=== PATIENT | female | born 1980 | race Caucasian/White ===

== ENCOUNTER 2016-04-20 15:04 | Observation (INO) | payer MEDICAID ==
[2016-04-20] MEDS ORDERED: 0.9 % SODIUM CHLORIDE 1,000 ML BAG IV ONE (16:23)
[2016-04-20] MEDS ORDERED: ONDANSETRON HCL IV 4 MG/2 ML VIAL IVP ONE (16:42)
[2016-04-20 16:47] LABS: BASO % 0.1 % (0-6); EOS % 0.1 % (0-6); GRAN % 78.8 % (47-80); HEMATOCRIT 39.8 % (35.0-47.0); HEMOGLOBIN 12.7 gm/dl (11.6-16.0); LYMPH % 12.4 % (16-45); MEAN CELL VOLUME 83.3 fl (81-97); MEAN CORPUSCULAR HEMOGLOBIN 26.6 pg (27-33); MEAN CORPUSCULAR HGB CONC 31.9 g/dl (32-36); MEAN PLATELET VOLUME 9.9 fl (7.4-10.4); MONO % 8.6 % (0-9); PLATELET COUNT 384 K/uL (130-400); RED BLOOD COUNT 4.78 M/uL (3.80-5.40); RED CELL DISTRIBUTION WIDTH 14.4 % (11.5-14.5); WHITE BLOOD COUNT W/O DIFF 14.5 K/uL (4.2-12.2)
[2016-04-20 17:07] LABS: ALBUMIN 4.1 gm/dL (3.5-5.0); ALKALINE PHOSPHATASE 96 U/L (38-126); ALT/SGPT 31 U/L (9-52); AMYLASE 42 U/L (30-110); ANION GAP 16.4 (7-16); AST/SGOT 32 U/L (14-36); BILIRUBIN,TOTAL 0.85 mg/dL (0.2-1.3); BLOOD UREA NITROGEN 12 mg/dL (7-17); CARBON DIOXIDE 26.6 mmol/L (22-30); CREATININE 0.9 mg/dL (0.52-1.04); EST GLOMERULAR FILTRATION RATE > 60 ml/min; GLUCOSE,RANDOM 165 mg/dL (70-110); LIPASE 89 U/L (23-300); TOTAL PROTEIN 8.4 gm/dL (6.3-8.2)
--- NOTE | 2016-04-20 18:56 | Emergency Department Record ---
History of Present Illness - General Chief complaint: Nausea, Vomiting, Diarrhea Stated complaint: BODY ACHE/NAUSEATED/DIARRHEA Time Seen by Provider: 04/20/16 16:17 Source: Patient Mode of Arrival: Ambulatory Limitations: No limitations - History of Present Illness Initial comments: pt has been sick all week with vomiting, diarrhea, body aches and abdominal pain. MD complaint: Abdominal pain, Diarrhea, Nausea, Vomiting Onset/Timin -: Days(s) Description of Diarrhea: Water Severity: Moderate Severity scale (1-10): 10 Quality: Aching Consistency: Intermittent Associated Symptoms: Malaise, Nausea/vomiting - Related Data Home Medications Medication Instructions Recorded Confirmed Last Taken Albuterol Sulfate [Ventolin Hfa] 1 - 2 puff IH .EVERY 4-6 HOURS PRN 04/20/16 1 Day Ago Lisinopril 20 mg PO DAILY 04/20/16 04/20/16 1 Day Ago Loratadine 10 mg PO DAILY 04/20/16 04/20/16 1 Day Ago Metformin HCl [Metformin HCl ER] 1,000 mg PO BID 04/20/16 04/20/16 1 Day Ago Allergies Allergy/AdvReac Type Severity Reaction Status Date / Time No Known Drug Allergies Allergy Verified 04/20/16 15:42 Travel Screening - Travel/Exposure Within Last 30 Days Have you traveled within the last 30 days?: No - Travel/Exposure Within Last Year Have you traveled outside the [place] in the last year?: No - Additonal Travel Details Have you been exposed to anyone with a communicable illness?: No - Travel Symptoms Symptom Screening: None Review of Systems Reviewed: No additional complaints except as noted below Constitutional: Reports: As per HPI. Denies: Chills, Fever, Malaise, Night sweats, Weakness, Weight change Eyes: Reports: As per HPI. Denies: Eye discharge, Eye pain, Photophobia, Vision change ENT: Reports: As per HPI. Denies: Congestion, Dental pain, Ear pain, Epistaxis , Hearing loss, Throat pain Respiratory: Reports: As per HPI. Denies: Cough, Dyspnea, Hemoptysis, Stridor, Wheezes Cardiovascular: Reports: As per HPI. Denies: Arrhythmia, Chest pain, Dyspnea on exertion, Edema, Murmurs, Orthopnea, Palpitations, Paroxysmal nocturnal dyspnea, Rheumatic Fever, Syncope Endocrine: Reports: As per HPI. Denies: Fatigue, Heat or cold intolerance, Polydipsia, Polyuria Gastrointestinal: Reports: As per HPI. Denies: Abdominal pain, Constipation, Diarrhea, Hematemesis, Hematochezia, Melena, Nausea, Vomiting Genitourinary: Reports: As per HPI. Denies: Abnormal menses, Discharge, Dyspareunia, Dysuria, Frequency, Hematuria, Incontinence, Retention, Urgency Musculoskeletal: Reports: As per HPI. Denies: Arthralgia, Back pain, Gout, Joint swelling, Myalgia, Neck pain Skin: Reports: As per HPI. Denies: Bruising, Change in color, Change in hair/ nails, Lesions, Pruritus, Rash Neurological: Reports: As per HPI. Denies: Abnormal gait, Confusion, Headache, Numbness, Paresthesias, Seizure, Tingling, Tremors, Vertigo, Weakness Psychiatric: Reports: As per HPI. Denies: Anxiety, Auditory hallucinations, Depression, Homicidal thoughts, Suicidal thoughts, Visual hallucinations Hematological/Lymphatic: Reports: As per HPI. Denies: Anemia, Blood Clots, Easy bleeding, Easy bruising, Swollen glands Past Medical History - SOCIAL HISTORY Smoking Status: Never smoker Alcohol Use: Occassional Drug Use: None - RESPIRATORY Hx Asthma: Yes (seasonal) - CARDIOVASCULAR Hx Cardio Disorders: No - NEURO Hx Neuro Disorders: No - GI Hx GI Disorders: No - Hx Genitourinary Disorders: No - ENDOCRINE Hx Diabetes: Yes Hx Thyroid Disease: No - MUSCULOSKELETAL Hx Musculoskeletal Disorders: No - PSYCH Hx Psych Problems: No - HEMATOLOGY/ONCOLOGY Hx Anemia: No Hx Blood Disorders: No Hx Bruising: No Family Medical History Any Significant Family History?: Yes Family Hx Comment (NOT TO BE USED IN PLACE OF ITEMS BELOW): none noted Physical Exam - General General Appearance: Alert, Oriented x3, Cooperative, Mild distress, Other ( morbidly obese) - Head Head exam: Normal inspection - Eye Eye exam: Normal appearance, PERRL, EOMI Pupils: Normal accommodation - ENT ENT exam: Normal exam, Mucous membranes dry, Normal external ear exam, Normal orophraynx Ear exam: Normal external inspection. negative: External canal tenderness Nasal Exam: Normal inspection. negative: Discharge, Sinus tenderness Mouth exam: Normal external inspection, Tongue normal Teeth exam: Normal inspection. negative: Dental caries Throat exam: Normal inspection. negative: Tonsillar erythema, Tonsillar exudate - Neck Neck exam: Normal inspection, Full ROM. negative: Tenderness - Respiratory Respiratory exam: Normal lung sounds bilaterally. negative: Respiratory distress - Cardiovascular Cardiovascular Exam: Normal rhythm, Normal heart sounds, Tachycardia - GI/Abdominal GI/Abdominal exam: Soft, Normal bowel sounds, Tenderness (ruq) - Rectal Rectal exam: Deferred - exam: Deferred - Extremities Extremities exam: Normal inspection, Full ROM, Normal capillary refill. negative: Tenderness - Back Back exam: Reports: Normal inspection, Full ROM. Denies: Muscle spasm, Rash noted, Tenderness - Neurological Neurological exam: Alert, CN II-XII intact, Normal gait, Oriented X3 - Psychiatric Psychiatric exam: Normal affect, Normal mood - Skin Skin exam: Dry, Intact, Normal color, Warm Course Vital Signs 04/20/16 04/20/16 15:45 18:18 Temperature 98.6 F Pulse Rate [ 117 H 116 H Pulse Ox Probe] Respiratory 20 18 Rate Blood Pressure 107/91 116/71 [Left Arm] Pulse Ox 96 94 L - Reevaluation(s) Reevaluation #1: 04/20/16 19:01 pt feels slightly better Medical Decision Making - Lab Data Result diagrams: 04/20/16 16:42 04/20/16 16:42 Lab Results 04/20/16 04/20/16 Range/Units 16:42 16:42 WBC 14.5 H (4.2-12.2) K/uL RBC 4.78 (3.80-5.40) M/uL Hgb 12.7 (11.6-16.0) gm/dl Hct 39.8 (35.0-47.0) % MCV 83.3 (81-97) fl MCH 26.6 L (27-33) pg MCHC 31.9 L (32-36) g/dl RDW 14.4 (11.5-14.5) % Plt Count 384 (130-400) K/uL MPV 9.9 (7.4-10.4) fl Gran % 78.8 (47-80) % Lymphocytes % 12.4 L (16-45) % Monocytes % 8.6 (0-9) % Eosinophils % 0.1 (0-6) % Basophils % 0.1 (0-6) % Sodium 136 (136-145) mmol/L Potassium 3.4 L (3.5-5.1) mmol/L Chloride 93 L (98-107) mmol/L Carbon Dioxide 26.6 (22-30) mmol/L Anion Gap 16.4 H (7-16) BUN 12 (7-17) mg/dL Creatinine 0.9 (0.52-1.04) mg/dL Estimated GFR > 60 ml/min Random Glucose 165 H (70-110) mg/dL Calcium 8.5 (8.5-10.1) mg/dL Total Bilirubin 0.85 (0.2-1.3) mg/dL AST 32 (14-36) U/L ALT 31 (9-52) U/L Alkaline Phosphatase 96 (38-126) U/L Total Protein 8.4 H (6.3-8.2) gm/dL Albumin 4.1 (3.5-5.0) gm/dL Globulin 4.3 (1.4-4.8) gm/dL Albumin/Globulin Ratio 1.0 L (1.1-1.8) Amylase 42 (30-110) U/L Lipase 89 (23-300) U/L Disposition Disposition: Admit Clinical Impression: Pyelonephritis Disposition: Still a Patient at [facility] Decision to Admit: Admit from ER Decision to Admit Date: 04/20/16 Decision to Admit Time: 19:06 Forms: Patient Portal Access
[2016-04-20] MEDS ORDERED: PROMETHAZINE HCL 25 MG/ML VIAL IVP PRN (19:47)
[2016-04-20] MEDS ORDERED: ACETAMINOPHEN 500 MG TABLET PO PRN (19:47)
[2016-04-20] MEDS: 0.9 % SODIUM CHLORIDE 1000ML 1,000 ML IV PRN (20:09)
[2016-04-20] MEDS: CIPROFLOXACIN LACTATE/D5W 400 MG in DEXTROSE 1 BAG IVPB SCH (23:35)
[2016-04-20 23:38] LABS: URINE BILIRUBIN SMALL (NEGATIVE); URINE BLOOD LARGE (NEGATIVE); URINE GLUCOSE (UA) NEGATIVE (NEGATIVE); URINE KETONE NEGATIVE (NEGATIVE); URINE LEUKOCYTE ESTERASE MODERATE (NEGATIVE); URINE NITRITE NEGATIVE (NEGATIVE); URINE UROBILINOGEN 0.2 E.U./dL (0.20 - 1.00)
[2016-04-20 23:53] LABS: URINE APPEARANCE CLOUDY; URINE PROTEIN 300 mg/dL (NEGATIVE)
[2016-04-20 23:54] LABS: URINE COLOR AMBER
[2016-04-20 23:55] LABS: URINE AMORPHOUS SEDIMENT 4+; URINE BACTERIA 4+; URINE EPITHELIAL CELLS 16 - 20 (FEW); URINE MUCUS HEAVY
--- NOTE | 2016-04-21 06:45 | History & Physical ---
History of Present Illness - Date of Service Date of Service for History & Physical: 04/21/16 - History of Present Illness Admitting Diagnosis: pyelonepritis, dehydration, vomiting History of Present Illness: 35 yo female admitted for B/L pyelonephritis. PMHx consists of high blood pressure, type 2 DM, obesity, seasonal allergies. [facility] states she began not feeling well about one week ago. She followed up with her PCP on April 15. She states she felt well on Friday, so she didn't bring up her body aches, nausea or fatigue. On Friday morning, patient woke up with those symptoms back again. In addition, she reports abdominal cramping, decreased appetite, fever, chills and vomiting. Aggravated by nothing. Alleviated with tylenol and IV fluids, anti emetic and Cipro. While in the ED, T 98.6, HR 116, RR 18, BP 116/71, and O2 94 % on RA. WBC 14.5 , o/w CBC normal. Sodium 136, potassium 3.4, chloride 93, AG 16.4, BUN 12, Cr. 0.9, glucose 165, normal hepatical profile, amylase/lipase. UA: moderate leuks, large blood, 4+ bacteria. CT of abdomen: B/L perinephritic fat stranding consistent with pyelonephritis (L>R), fatty liver. Patient was started on IV Cipro 400 mg q 12 hours and IVF's. Patient was admitted for further medical management. 04/21/16: Patient sitting up in bed comfortably. She states she feels much better. She denies any n/v, dysuria, hematuria, change in urination, diarrhea, abdominal pain, fever chills, headache, cough, sob, cp, fatigue or body aches. she's not requiring any medication for pain. Tolerating PO intake. States she feels warm, though typically requires a fan near by even in the winter. Denies any sick contacts or recent travel. no changes to her medications. reports h/ o UTI many years ago. PCP: Eloisa Church M.D. Travel Screening - Travel/Exposure Within Last 30 Days Have you traveled within the last 30 days?: No - Travel/Exposure Within Last Year Have you traveled outside the [place] in the last year?: No - Additonal Travel Details Have you been exposed to anyone with a communicable illness?: No - Travel Symptoms Symptom Screening: None Review of Systems Constitutional: Reports: As per HPI. Denies: Chills, Fever, Malaise, Night sweats, Weakness, Weight change Eyes: Reports: As per HPI. Denies: Eye discharge, Eye pain, Photophobia, Vision change ENT: Reports: As per HPI. Denies: Congestion, Dental pain, Ear pain, Epistaxis , Hearing loss, Throat pain Respiratory: Reports: As per HPI. Denies: Cough, Dyspnea, Hemoptysis, Stridor, Wheezes Cardiovascular: Reports: As per HPI. Denies: Arrhythmia, Chest pain, Dyspnea on exertion, Edema, Murmurs, Orthopnea, Palpitations, Paroxysmal nocturnal dyspnea, Rheumatic Fever, Syncope Endocrine: Reports: As per HPI. Denies: Fatigue, Heat or cold intolerance, Polydipsia, Polyuria Gastrointestinal: Reports: As per HPI. Denies: Abdominal pain, Constipation, Diarrhea, Hematemesis, Hematochezia, Melena, Nausea, Vomiting Genitourinary: Reports: As per HPI. Denies: Abnormal menses, Discharge, Dyspareunia, Dysuria, Frequency, Hematuria, Incontinence, Retention, Urgency Musculoskeletal: Reports: As per HPI. Denies: Arthralgia, Back pain, Gout, Joint swelling, Myalgia, Neck pain Skin: Reports: As per HPI. Denies: Bruising, Change in color, Change in hair/ nails, Lesions, Pruritus, Rash Neurological: Reports: As per HPI. Denies: Abnormal gait, Confusion, Headache, Numbness, Paresthesias, Seizure, Tingling, Tremors, Vertigo, Weakness Psychiatric: Reports: As per HPI. Denies: Anxiety, Auditory hallucinations, Depression, Homicidal thoughts, Suicidal thoughts, Visual hallucinations Hematological/Lymphatic: Reports: As per HPI. Denies: Anemia, Blood Clots, Easy bleeding, Easy bruising, Swollen glands Past Medical History - SOCIAL HISTORY Smoking Status: Never smoker Alcohol Use: Rare Alcohol Use Comment: one drink monthly Drug Use: None - RESPIRATORY Hx Respiratory Disorders: Yes Hx Asthma: Yes (seasonal) Hx of CPAP: Yes - CARDIOVASCULAR Hx Cardio Disorders: Yes Hx Hypertension: Yes - NEURO Hx Neuro Disorders: No - GI Hx GI Disorders: No - Hx Genitourinary Disorders: No - ENDOCRINE Hx Endocrine Disorders: Yes Hx Diabetes: Yes Hx Thyroid Disease: No - MUSCULOSKELETAL Hx Musculoskeletal Disorders: No - PSYCH Hx Psych Problems: No - HEMATOLOGY/ONCOLOGY Hx Hematology/Oncology Disorders: No Family Medical History Any Significant Family History?: Yes Hx Diabetes: Father, Mother Hx Heart Disease: Brother/Sister H&P Meds/Allergies - Allergies Allergies: Allergies Allergy/AdvReac Type Severity Reaction Status Date / Time No Known Drug Allergies Allergy Verified 04/20/16 15:42 - Home Medications Home Medications Medication Instructions Recorded Confirmed Last Taken Albuterol Sulfate [Ventolin Hfa] 1 - 2 puff IH .EVERY 4-6 HOURS PRN 04/20/16 1 Day Ago Lisinopril 20 mg PO DAILY 04/20/16 04/20/16 1 Day Ago Loratadine 10 mg PO DAILY 04/20/16 04/20/16 1 Day Ago Metformin HCl [Metformin HCl ER] 1,000 mg PO BID 04/20/16 04/20/16 1 Day Ago - Active Medications Active Medications: Current Medications Acetaminophen (Tylenol 500mg Tab) 1,000 mg PO Q6H PRN PRN Reason: PAIN/TEMP Ciprofloxacin Lactate 400 mg/ (Glucose) 200 mls @ 200 mls/hr IVPB Q12H FELISHA Stop: 04/25/16 19:48 Last Admin: 04/20/16 23:35 Dose: 200 mls/hr Sodium Chloride () 1,000 mls @ 125 mls/hr IV .Q8H PRN PRN Reason: LARGE VOLUME IV Last Admin: 04/20/16 20:09 Dose: 125 mls/hr Promethazine HCl (Phenergan) 12.5 mg IVP Q6H PRN PRN Reason: NAUSEA/VOMITING Physical Exam - Vital Signs Vital Signs: Vital Signs - Last 24 Hrs Temp Pulse Resp BP Pulse Ox 04/20/16 19:55 20 04/20/16 19:50 97.8 F 108 H 20 124/62 90 L - General General Appearance: Alert, Oriented x3, Cooperative, No acute distress, Other ( morbidly obese) Limitations: No limitations - Head Head exam: Normal inspection - Eye Eye exam: Normal appearance, PERRL, EOMI Pupils: Normal accommodation - ENT ENT exam: Normal exam, Mucous membranes dry, Normal external ear exam, Normal orophraynx Ear exam: Normal external inspection. negative: External canal tenderness Nasal Exam: Normal inspection. negative: Discharge, Sinus tenderness Mouth exam: Normal external inspection, Tongue normal Teeth exam: Normal inspection. negative: Dental caries Throat exam: Normal inspection. negative: Tonsillar erythema, Tonsillar exudate - Neck Neck exam: Normal inspection, Full ROM. negative: Tenderness - Respiratory Respiratory exam: Normal lung sounds bilaterally. negative: Respiratory distress - Cardiovascular Cardiovascular Exam: Regular rate, Normal rhythm, Normal heart sounds - GI/Abdominal GI/Abdominal exam: Soft, Normal bowel sounds. negative: Tenderness - Rectal Rectal exam: Deferred - exam: Deferred - Extremities Extremities exam: Normal inspection, Full ROM, Normal capillary refill. negative: Tenderness - Back Back exam: Reports: Normal inspection, Full ROM. Denies: Muscle spasm, Rash noted, Tenderness - Neurological Neurological exam: Alert, CN II-XII intact, Normal gait, Oriented X3 - Psychiatric Psychiatric exam: Normal affect, Normal mood - Skin Skin exam: Diaphoretic (back), Intact, Normal color, Warm. negative: Erythema, Petechiae, Rash Results - Labs Result Diagrams: 04/21/16 06:49 04/21/16 06:49 Labs Last 24 Hours: Laboratory Results - last 24 hr 04/20/16 23:20 Urine Color [place] Urine Appearance Cloudy Urine pH 5.5 Ur Specific [place] >= 1.030 Urine Protein 300 mg/dl H Urine Glucose (UA) Negative Urine Ketones Negative Urine Blood Large H Urine Nitrite Negative Urine Bilirubin Small H Urine Urobilinogen 0.2 Ur Leukocyte Esterase Moderate H Urine RBC Too numerous to cnt Urine WBC Too numerous to cnt Ur Epithelial Cells 16 - 20 Amorphous Sediment 4+ Urine Bacteria 4+ Urine Mucus Heavy VTE H&P Assessment - Risk for VTE Risk for VTE: Yes Risk Level: Moderate Risk Assessment Date: 04/21/16 Risk Assessment Time: 11:00 VTE Orders Placed or Will Be Placed: Yes Plan - Detailed Diagnosis and Plan (1) Pyelonephritis Current Visit: Yes Status: Acute Base Code: N12 - TUBULO-INTERSTITIAL NEPHRITIS, NOT SPCF ACUTE OR CHRONIC Comment: 04/21/16: 35 yo female with UA positive for moderate leuks, blood and 4+ bacteria. CT of abdomen demonstrated B/L pyelonephritis. WBC normalized. Afebrile. Continue IV Ciprofloxacin 400 mg Q12 hours. await culture results. Tylenol as directed as needed for fever. Anti emetic prn for nausea. VS Q4 hours. Continue all home medications. I anticipate D/C home 04/22/16. (2) DVT prophylaxis Current Visit: Yes Status: Acute Base Code: [id number] - Comment: 04/21/16: moderate risk noting weight and decreased mobility. lovenox 40 mg sq daily for dvt prophylaxis. (3) Full code status Current Visit: Yes Status: Acute Base Code: Z78.9 - OTHER SPECIFIED HEALTH STATUS Comment: 04/21/16: full code
[2016-04-21 06:46] LABS: BASO % 0.3 % (0-6); EOS % 1.3 % (0-6); HEMATOCRIT 35.7 % (35.0-47.0); HEMOGLOBIN 11.2 gm/dl (11.6-16.0); LYMPH % 17.4 % (16-45); MEAN CORPUSCULAR HGB CONC 31.4 g/dl (32-36); PLATELET COUNT 307 K/uL (130-400); RED CELL DISTRIBUTION WIDTH 14.6 % (11.5-14.5); WHITE BLOOD COUNT W/O DIFF 9.3 K/uL (4.2-12.2)
[2016-04-21] MEDS: 0.9 % SODIUM CHLORIDE 1000ML 1,000 ML IV PRN ×2 (06:50→18:26)
[2016-04-21 06:51] LABS: MEAN CORPUSCULAR HEMOGLOBIN 26.6 pg (27-33)
[2016-04-21 07:02] LABS: BLOOD UREA NITROGEN 13 mg/dL (7-17); CREATININE 0.8 mg/dL (0.52-1.04); EST GLOMERULAR FILTRATION RATE > 60 ml/min; GLUCOSE,RANDOM 164 mg/dL (70-110)
[2016-04-21] MEDS ORDERED: ALBUTEROL HFA 8 GM INHALER INH PRN (08:46)
[2016-04-21] MEDS ORDERED: POTASSIUM CHLORIDE 20 MEQ TABLET PO ONE (10:35)
[2016-04-21] MEDS: ENOXAPARIN 40 MG/0.4 ML SYR SQ SCH (10:42)
[2016-04-21] MEDS: CIPROFLOXACIN LACTATE/D5W 400 MG in DEXTROSE 1 BAG IVPB SCH ×3 (10:43→23:47)
[2016-04-21] MEDS ORDERED: ONDANSETRON HCL IV 4 MG/2 ML VIAL IVP PRN (18:21)
[2016-04-21] MEDS: LORATADINE 10 MG TABLET PO SCH (21:12)
[2016-04-21] MEDS: METFORMIN 500 MG PO SCH (21:13)
[2016-04-21] MEDS: LISINOPRIL 20 MG TABLET PO SCH (21:13)
[2016-04-22] MEDS: 0.9 % SODIUM CHLORIDE 1000ML 1,000 ML IV PRN (04:48)
[2016-04-22 06:23] LABS: BASO % 0.2 % (0-6); EOS % 1.6 % (0-6); GRAN % 68.6 % (47-80); HEMATOCRIT 37.5 % (35.0-47.0); HEMOGLOBIN 11.7 gm/dl (11.6-16.0); LYMPH % 18.9 % (16-45); MEAN CELL VOLUME 85.6 fl (81-97); MEAN CORPUSCULAR HEMOGLOBIN 26.7 pg (27-33); MEAN CORPUSCULAR HGB CONC 31.2 g/dl (32-36); MEAN PLATELET VOLUME 10.1 fl (7.4-10.4); MONO % 10.7 % (0-9); PLATELET COUNT 315 K/uL (130-400); RED BLOOD COUNT 4.38 M/uL (3.80-5.40); RED CELL DISTRIBUTION WIDTH 14.5 % (11.5-14.5); WHITE BLOOD COUNT W/O DIFF 8.8 K/uL (4.2-12.2)
[2016-04-22 06:38] LABS: ANION GAP 13.8 (7-16); BLOOD UREA NITROGEN 8 mg/dL (7-17); CARBON DIOXIDE 27.2 mmol/L (22-30); CREATININE 0.6 mg/dL (0.52-1.04); EST GLOMERULAR FILTRATION RATE > 60 ml/min; GLUCOSE,RANDOM 181 mg/dL (70-110)
--- NOTE | 2016-04-22 07:26 | CT SCAN REPORT ---
EXAM: CT SCAN OF THE ABDOMEN AND PELVIS WITHOUT CONTRAST HISTORY: EPIGASTRIC PAIN FOR THE PAST FOUR DAYS WITH VOMITING. TECHNIQUE: Standard CT imaging of the abdomen and pelvis was performed without contrast. Additional coronal and sagittal reformatted images were also performed. Comparison: None. FINDINGS: There is minor left pleural fluid or thickening. Minor atelectasis is present at the left lung base. The lung bases are otherwise clear. There is diffuse fatty infiltration of the liver. The gallbladder is distended. There are no surrounding inflammatory changes. There is no biliary ductal dilatation. The pancreas, spleen, and adrenal glands are normal. There is abnormal bilateral periureteral fat stranding and mild perinephric fat stranding, left greater than right. There is mild prominence of the left renal pelvis. There is no urinary tract calculus. The appearance is suspicious for bilateral ascending urinary tract infections and possible developing pyelonephritis. The urinary bladder is decompressed. The aorta is normal in caliber. There are scattered nonenlarged retroperitoneal lymph nodes. No pathologic lymphadenopathy is identified. The visualized bowel and mesentery appear normal. The appendix is visualized and is unremarkable. There is no pneumoperitoneum or ascites. The uterus and adnexa appear within normal limits. Degenerative changes are present within the spine. IMPRESSION: 1. THERE IS ABNORMAL BILATERAL PERIURETERAL AND PERINEPHRIC FAT STRANDING WITH NO ASSOCIATED CALCULUS. THE APPEARANCE IS SUSPICIOUS FOR ASCENDING URINARY TRACT INFECTION AND POSSIBLE PYELONEPHRITIS. 2. THERE ARE NO OTHER ACUTE FINDINGS. 3. DIFFUSE FATTY INFILTRATION OF THE LIVER. 4. DISTENDED GALLBLADDER WITH NO ASSOCIATED INFLAMMATORY CHANGE OR BILIARY DUCTAL DILATATION. 5. MINOR LEFT PLEURAL EFFUSION. JOB NUMBER: [id number] [facility]
[2016-04-22] MEDS: LORATADINE 10 MG TABLET PO SCH (10:11)
[2016-04-22] MEDS: ENOXAPARIN 40 MG/0.4 ML SYR SQ SCH (10:12)
[2016-04-22] MEDS: LISINOPRIL 20 MG TABLET PO SCH (10:12)
[2016-04-22] MEDS: METFORMIN 500 MG PO SCH (10:12)
[2016-04-22] MEDS: CIPROFLOXACIN LACTATE/D5W 400 MG in DEXTROSE 1 BAG IVPB SCH (10:31)
--- NOTE | 2016-04-22 10:42 | Discharge Summary ---
Providers Discharge Summary Date: 04/22/16 Date of admission: 04/20/16 19:44 Expected Date of Discharge: 04/22/16 Attending physician: JHOAN DOMINGO Primary care physician: ELOISA BETANCOURT M.D. Physical Exam - Vital Signs Vital Signs: Vital Signs - Last 24 Hrs Temp Pulse Resp BP Pulse Ox 04/22/16 10:00 99.0 F 93 H 18 145/73 93 L 04/22/16 06:00 98.2 F 92 H 20 132/73 92 L 04/21/16 22:00 98.3 F 107 H 22 140/72 92 L 04/21/16 21:15 18 04/21/16 18:00 98.9 F 93 H 20 157/91 91 L 04/21/16 14:00 98.1 F 87 18 152/87 96 - General General Appearance: Alert, Oriented x3, Cooperative, No acute distress, Other ( morbidly obese) Limitations: No limitations - Head Head exam: Normal inspection - Eye Eye exam: Normal appearance, PERRL, EOMI Pupils: Normal accommodation - ENT ENT exam: Normal exam, Mucous membranes dry, Normal external ear exam, Normal orophraynx Ear exam: Normal external inspection. negative: External canal tenderness Nasal Exam: Normal inspection. negative: Discharge, Sinus tenderness Mouth exam: Normal external inspection, Tongue normal Teeth exam: Normal inspection. negative: Dental caries Throat exam: Normal inspection. negative: Tonsillar erythema, Tonsillar exudate - Neck Neck exam: Normal inspection, Full ROM. negative: Tenderness - Respiratory Respiratory exam: Normal lung sounds bilaterally. negative: Respiratory distress - Cardiovascular Cardiovascular Exam: Regular rate, Normal rhythm, Normal heart sounds - GI/Abdominal GI/Abdominal exam: Soft, Normal bowel sounds. negative: Tenderness - Rectal Rectal exam: Deferred - exam: Deferred - Extremities Extremities exam: Normal inspection, Full ROM, Normal capillary refill. negative: Tenderness - Back Back exam: Reports: Normal inspection, Full ROM. Denies: Muscle spasm, Rash noted, Tenderness - Neurological Neurological exam: Alert, CN II-XII intact, Normal gait, Oriented X3 - Psychiatric Psychiatric exam: Normal affect, Normal mood - Skin Skin exam: Intact, Normal color, Warm. negative: Diaphoretic, Erythema, Petechiae, Rash Hospitalization - Hospitalization Admission Diagnosis: pyelonepritis, dehydration, vomiting - Problem List/Discharge Diagnosis (1) Pyelonephritis Current Visit: Yes Status: Acute Base Code: N12 - TUBULO-INTERSTITIAL NEPHRITIS, NOT SPCF ACUTE OR CHRONIC Comment: 04/22/16: 35 yo female with UA positive for moderate leuks, blood and 4+ bacteria. CT of abdomen demonstrated B/L pyelonephritis. WBC normalized. Afebrile. Continue Ciprofloxacin 500 mg Q12 hours x 8 days. This was sent to pharmacy. Final culture/sensitivity report pending. OTC Tylenol, Motrin, as directed, as needed for fever. Anti emetic prn for nausea. Zofran sent to pharmacy. 20 mEq of PO potassium administered prior to d/c. Follow up with PCP on Friday, Apr 24 at 1320 for follow up visit. I ask that she return sooner re any new or worsening symptoms such as fever >102 , abdominal pain, change in urination, etc. (2) Full code status Current Visit: Yes Status: Acute Base Code: Z78.9 - OTHER SPECIFIED HEALTH STATUS Comment: 04/22/16: pt remained full code during her stay. - Hospitalization Course Disposition: Home, Self-Care Hospital Course: 35 yo female admitted for B/L pyelonephritis. PMHx consists of high blood pressure, type 2 DM, obesity, seasonal allergies. [facility] states she began not feeling well about one week ago. She followed up with her PCP on Friday, April 15. She states she felt well on Friday, so she didn't bring up her body aches, nausea or fatigue. On Friday morning, patient woke up with those symptoms back again. In addition, she reports abdominal cramping, decreased appetite, fever, chills and vomiting. Aggravated by nothing. Alleviated with tylenol and IV fluids, anti emetic and Cipro. While in the ED, T 98.6, HR 116, RR 18, BP 116/71, and O2 94 % on RA. WBC 14.5 , o/w CBC normal. Sodium 136, potassium 3.4, chloride 93, AG 16.4, BUN 12, Cr. 0.9, glucose 165, normal hepatical profile, amylase/lipase. UA: moderate leuks, large blood, 4+ bacteria. CT of abdomen: B/L perinephritic fat stranding consistent with pyelonephritis (L>R), fatty liver. Patient was started on IV Cipro 400 mg q 12 hours and IVF's. Patient was admitted for further medical management. 04/21/16: Patient sitting up in bed comfortably. She states she feels much better. She denies any n/v, dysuria, hematuria, change in urination, diarrhea, abdominal pain, fever chills, headache, cough, sob, cp, fatigue or body aches. she's not requiring any medication for pain. Tolerating PO intake. States she feels warm, though typically requires a fan near by even in the winter. Denies any sick contacts or recent travel. no changes to her medications. reports h/ o UTI many years ago. PCP: Eloisa Church M.D. 04/22/16: patient sitting up in bed comfortably. Tolerated liquid breakfast. states she became nauseous last night after dinner. she believes she ate too quickly. bladder function is normal. no dysuria or hematuria. No abd pain, fever, chills, n/v, diaphoresis, headache, cough, sob or skin changes. Abnormal Labs: Abnormal Lab Results 04/20/16 04/21/16 04/21/16 Range/Units 23:20 06:49 06:49 Hgb 11.2 L (11.6-16.0) gm/dl MCH 26.6 L (27-33) pg MCHC 31.4 L (32-36) g/dl RDW 14.6 H (11.5-14.5) % Monocytes % 11.0 H (0-9) % Sodium 134 L (136-145) mmol/L Potassium 3.1 L (3.5-5.1) mmol/L Chloride 92 L (98-107) mmol/L Random Glucose 164 H (70-110) mg/dL Calcium 7.6 L (8.5-10.1) mg/dL Urine Protein 300 mg/dl H (NEGATIVE) Urine Blood Large H (NEGATIVE) Urine Bilirubin Small H (NEGATIVE) Ur Leukocyte Esterase Moderate H (NEGATIVE) 04/22/16 04/22/16 Range/Units 05:50 05:50 Hgb (11.6-16.0) gm/dl MCH 26.7 L (27-33) pg MCHC 31.2 L (32-36) g/dl RDW (11.5-14.5) % Monocytes % 10.7 H (0-9) % Sodium (136-145) mmol/L Potassium 3.4 L (3.5-5.1) mmol/L Chloride 96 L (98-107) mmol/L Random Glucose 181 H (70-110) mg/dL Calcium 7.8 L (8.5-10.1) mg/dL Urine Protein (NEGATIVE) Urine Blood (NEGATIVE) Urine Bilirubin (NEGATIVE) Ur Leukocyte Esterase (NEGATIVE) Condition at Discharge: (1) Good Discharge Medications - Discharge Medications Prescriptions: Ciprofloxacin HCl [Cipro] 500 mg PO Q12HR #16 tablet Ondansetron [Zofran Odt] 4 mg PO Q8H PRN #10 tab.rapdis PRN Reason: Nausea Home Medications: Ambulatory Orders Albuterol Sulfate [Ventolin Hfa] 1 - 2 puff IH .EVERY 4-6 HOURS PRN 04/20/16 [ Last Taken 1 Day Ago] Lisinopril 20 mg PO DAILY 04/20/16 [Last Taken 1 Day Ago] Loratadine 10 mg PO DAILY 04/20/16 [Last Taken 1 Day Ago] Metformin HCl [Metformin HCl ER] 1,000 mg PO BID 04/20/16 [Last Taken 1 Day Ago] Ciprofloxacin HCl [Cipro] 500 mg PO Q12HR #16 tablet 04/22/16 [Last Taken Unknown] Ondansetron [Zofran Odt] 4 mg PO Q8H PRN #10 tab.rapdis 04/22/16 [Last Taken Unknown] Discharge Plan - Discharge Instructions Activity at Discharge: Ambulate Only With Your Walker, Increase Activity as Tolerated Diet at Discharge: Advance to Usual Diet
[2016-04-22] MEDS ORDERED: POTASSIUM CHLORIDE 20 MEQ TABLET PO ONE (10:47)
== END 2016-04-22 14:00 | disposition home or self-care (01) ==
LOC: ER 15:04 → MEDSURG 19:44
PROVIDERS: ADMIT Family Medicine; ATTEND Family Medicine
DX: N10 Acute pyelonephritis (principal); I10 Essential (primary) hypertension; E11.9 Type 2 diabetes mellitus without complications; Z78.9 Other specified health status
CPT/HCPCS: 99285 ×2; 96365; 96375; 96361; 82310; 82150; 83690; 85025 ×3; 80048 ×2; 80053; 81001; 74176; G0378 ×3; J0744 ×3; J2405 ×2; 99217; 99220; 99239; J1650; J2550; J7030

== ENCOUNTER 2016-05-19 07:45 | Emergency (ER) | payer MEDICAID ==
[2016-05-19 08:22] LABS: HEMOGLOBIN 13.3 gm/dl (11.6-16.0); MEAN CORPUSCULAR HEMOGLOBIN 26.3 pg (27-33); MEAN CORPUSCULAR HGB CONC 31.7 g/dl (32-36); MEAN PLATELET VOLUME 9.9 fl (7.4-10.4); PLATELET COUNT 380 K/uL (130-400); RED BLOOD COUNT 5.06 M/uL (3.80-5.40); RED CELL DISTRIBUTION WIDTH 14.9 % (11.5-14.5); WHITE BLOOD COUNT W/O DIFF 11.8 K/uL (4.2-12.2)
--- NOTE | 2016-05-19 08:33 | Emergency Department Record ---
History of Present Illness - General Chief complaint: Extremity Problem Stated complaint: R ARM PAIN Time Seen by Provider: 05/19/16 08:00 Source: Patient, RN notes reviewed Mode of Arrival: Ambulatory - History of Present Illness Initial comments: right shoulder pain and worse with palpation of the right shoulder and severe pain moving the right shoulder. Patient denies falls but lifting 40 pound child . MD Complaint: Joint pain Onset/Timin -: Days(s) Location: Right, Arm Radiation: Proximal, Distal Severity scale (1-10): 10 Quality: Aching Consistency: Constant - Related Data Home Medications Medication Instructions Recorded Confirmed Last Taken Albuterol Sulfate [Ventolin Hfa] 1 - 2 puff IH .EVERY 4-6 HOURS PRN 04/20/16 1 Day Ago Lisinopril 20 mg PO DAILY 04/20/16 05/19/16 1 Day Ago Loratadine 10 mg PO DAILY 04/20/16 05/19/16 1 Day Ago Metformin HCl [Metformin HCl ER] 1,000 mg PO BID 04/20/16 05/19/16 1 Day Ago Previous Rx's Medication Instructions Recorded Ondansetron [Zofran Odt] 4 mg PO Q8H PRN #10 tab.evelio 04/22/16 Naproxen [Naprosyn] 500 mg PO Q12H #30 tab. 05/19/16 Allergies Allergy/AdvReac Type Severity Reaction Status Date / Time No Known Drug Allergies Allergy Verified 05/19/16 07:55 Travel Screening - Travel/Exposure Within Last 30 Days Have you traveled within the last 30 days?: No - Travel/Exposure Within Last Year Have you traveled outside the [place] in the last year?: No - Additonal Travel Details Have you been exposed to anyone with a communicable illness?: No - Travel Symptoms Symptom Screening: None Review of Systems Reviewed: No additional complaints except as noted below Constitutional: Reports: As per HPI. Denies: Chills, Fever, Malaise, Night sweats, Weakness, Weight change Eyes: Reports: As per HPI. Denies: Eye discharge, Eye pain, Photophobia, Vision change ENT: Reports: As per HPI. Denies: Congestion, Dental pain, Ear pain, Epistaxis , Hearing loss, Throat pain Respiratory: Reports: As per HPI. Denies: Cough, Dyspnea, Hemoptysis, Stridor, Wheezes Cardiovascular: Reports: As per HPI. Denies: Arrhythmia, Chest pain, Dyspnea on exertion, Edema, Murmurs, Orthopnea, Palpitations, Paroxysmal nocturnal dyspnea, Rheumatic Fever, Syncope Endocrine: Reports: As per HPI. Denies: Fatigue, Heat or cold intolerance, Polydipsia, Polyuria Gastrointestinal: Reports: As per HPI. Denies: Abdominal pain, Constipation, Diarrhea, Hematemesis, Hematochezia, Melena, Nausea, Vomiting Genitourinary: Reports: As per HPI. Denies: Abnormal menses, Discharge, Dyspareunia, Dysuria, Frequency, Hematuria, Incontinence, Retention, Urgency Musculoskeletal: Reports: As per HPI, Arthralgia (right shoulder pain). Denies : Back pain, Gout, Joint swelling, Myalgia, Neck pain Skin: Reports: As per HPI. Denies: Bruising, Change in color, Change in hair/ nails, Lesions, Pruritus, Rash Neurological: Reports: As per HPI. Denies: Abnormal gait, Confusion, Headache, Numbness, Paresthesias, Seizure, Tingling, Tremors, Vertigo, Weakness Psychiatric: Reports: As per HPI. Denies: Anxiety, Auditory hallucinations, Depression, Homicidal thoughts, Suicidal thoughts, Visual hallucinations Hematological/Lymphatic: Reports: As per HPI. Denies: Anemia, Blood Clots, Easy bleeding, Easy bruising, Swollen glands Past Medical History - SOCIAL HISTORY Smoking Status: Never smoker Alcohol Use: None Drug Use: None - RESPIRATORY Hx Respiratory Disorders: Yes Hx Asthma: Yes (seasonal) Hx of CPAP: Yes - CARDIOVASCULAR Hx Cardio Disorders: Yes Hx Hypertension: Yes - NEURO Hx Neuro Disorders: No - GI Hx GI Disorders: No - Hx Genitourinary Disorders: No - ENDOCRINE Hx Endocrine Disorders: Yes Hx Diabetes: Yes Hx Thyroid Disease: No - MUSCULOSKELETAL Hx Musculoskeletal Disorders: No - PSYCH Hx Psych Problems: No - HEMATOLOGY/ONCOLOGY Hx Hematology/Oncology Disorders: No Hx Anemia: No Hx Blood Disorders: No Hx Bruising: No Family Medical History Any Significant Family History?: Yes Family Hx Comment (NOT TO BE USED IN PLACE OF ITEMS BELOW): none noted Hx Diabetes: Father, Mother Hx Heart Disease: Brother/Sister Physical Exam - General General Appearance: Alert, Oriented x3, Cooperative, No acute distress - Head Head exam: Normal inspection - Eye Eye exam: Normal appearance, PERRL Pupils: Normal accommodation - ENT ENT exam: Normal exam, Mucous membranes moist, Normal external ear exam, Normal orophraynx, TM's normal bilaterally Ear exam: Normal external inspection. negative: External canal tenderness Nasal Exam: Normal inspection. negative: Discharge, Sinus tenderness Mouth exam: Normal external inspection, Tongue normal Teeth exam: Normal inspection. negative: Dental caries Throat exam: Normal inspection. negative: Tonsillar erythema, Tonsillar exudate - Neck Neck exam: Normal inspection, Full ROM. negative: Tenderness - Respiratory Respiratory exam: Normal lung sounds bilaterally. negative: Respiratory distress - Cardiovascular Cardiovascular Exam: Regular rate, Normal rhythm, Normal heart sounds - GI/Abdominal GI/Abdominal exam: Soft, Normal bowel sounds. 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 Denies: Muscle spasm, Rash noted, Tenderness - Neurological Neurological exam: Alert, Normal gait, Oriented X3, Reflexes normal - Psychiatric Psychiatric exam: Normal affect, Normal mood - Skin Skin exam: Dry, Intact, Normal color, Warm Course Vital Signs 05/19/16 07:48 Temperature 97.5 F L Pulse Rate 108 H Respiratory 16 Rate Blood Pressure 158/98 Pulse Ox 97 Medical Decision Making - Data Complexity MDM Data: X-Ray Ordered and/or Reviewed (no fractures , djd with calcification) - Lab Data Result diagrams: 05/19/16 08:14 Lab Results 05/19/16 Range/Units 08:14 WBC 11.8 (4.2-12.2) K/uL RBC 5.06 (3.80-5.40) M/uL Hgb 13.3 (11.6-16.0) gm/dl Hct 42.0 (35.0-47.0) % MCV 83.0 (81-97) fl MCH 26.3 L (27-33) pg MCHC 31.7 L (32-36) g/dl RDW 14.9 H (11.5-14.5) % Plt Count 380 (130-400) K/uL MPV 9.9 (7.4-10.4) fl Eosinophils % Not Reportable Basophils % Not Reportable Disposition Clinical Impression: Bursitis of shoulder Qualifiers: Laterality: right Qualified Code(s): M75.51 - Bursitis of right shoulder Disposition: Home, Self-Care Condition: (1) Good Instructions: Shoulder Bursitis (ED) Additional Instructions: follow up with family in 5 days Prescriptions: Naproxen [Naprosyn] 500 mg PO Q12H #30 tab.dr Forms: Patient Portal Access Time of Disposition: 08:42
[2016-05-19 08:35] LABS: C-REACTIVE PROTEIN 3.5 mg/dL (0.0-0.9)
[2016-05-19] MEDS ORDERED: NAPROXEN 250 MG TABLET PO ONE (08:42)
--- NOTE | 2016-05-19 08:52 | Emergency Department Record ---
History of Present Illness - General Chief complaint: Extremity Problem Stated complaint: R ARM PAIN Time Seen by Provider: 05/19/16 08:00 Source: Patient, RN notes reviewed Mode of Arrival: Ambulatory - History of Present Illness Onset/Timin -: Days(s) Location: Right, Arm Radiation: Proximal, Distal Severity scale (1-10): 10 Quality: Aching Consistency: Constant - Related Data Home Medications Medication Instructions Recorded Confirmed Last Taken Albuterol Sulfate [Ventolin Hfa] 1 - 2 puff IH .EVERY 4-6 HOURS PRN 04/20/16 1 Day Ago Lisinopril 20 mg PO DAILY 04/20/16 05/19/16 1 Day Ago Loratadine 10 mg PO DAILY 04/20/16 05/19/16 1 Day Ago Metformin HCl [Metformin HCl ER] 1,000 mg PO BID 04/20/16 05/19/16 1 Day Ago Previous Rx's Medication Instructions Recorded Ondansetron [Zofran Odt] 4 mg PO Q8H PRN #10 tab.evelio 04/22/16 Naproxen [Naprosyn] 500 mg PO Q12H #30 tab. 05/19/16 Allergies Allergy/AdvReac Type Severity Reaction Status Date / Time No Known Drug Allergies Allergy Verified 05/19/16 07:55 Travel Screening - Travel/Exposure Within Last 30 Days Have you traveled within the last 30 days?: No - Travel/Exposure Within Last Year Have you traveled outside the [place] in the last year?: No - Additonal Travel Details Have you been exposed to anyone with a communicable illness?: No - Travel Symptoms Symptom Screening: None Review of Systems Constitutional: Reports: As per HPI. Denies: Chills, Fever, Malaise, Night sweats, Weakness, Weight change Eyes: Reports: As per HPI. Denies: Eye discharge, Eye pain, Photophobia, Vision change ENT: Reports: As per HPI. Denies: Congestion, Dental pain, Ear pain, Epistaxis , Hearing loss, Throat pain Respiratory: Reports: As per HPI. Denies: Cough, Dyspnea, Hemoptysis, Stridor, Wheezes Cardiovascular: Reports: As per HPI. Denies: Arrhythmia, Chest pain, Dyspnea on exertion, Edema, Murmurs, Orthopnea, Palpitations, Paroxysmal nocturnal dyspnea, Rheumatic Fever, Syncope Endocrine: Reports: As per HPI. Denies: Fatigue, Heat or cold intolerance, Polydipsia, Polyuria Gastrointestinal: Reports: As per HPI. Denies: Abdominal pain, Constipation, Diarrhea, Hematemesis, Hematochezia, Melena, Nausea, Vomiting Genitourinary: Reports: As per HPI. Denies: Abnormal menses, Discharge, Dyspareunia, Dysuria, Frequency, Hematuria, Incontinence, Retention, Urgency Musculoskeletal: Reports: As per HPI, Arthralgia (right shoulder pain). Denies : Back pain, Gout, Joint swelling, Myalgia, Neck pain Skin: Reports: As per HPI. Denies: Bruising, Change in color, Change in hair/ nails, Lesions, Pruritus, Rash Neurological: Reports: As per HPI. Denies: Abnormal gait, Confusion, Headache, Numbness, Paresthesias, Seizure, Tingling, Tremors, Vertigo, Weakness Psychiatric: Reports: As per HPI. Denies: Anxiety, Auditory hallucinations, Depression, Homicidal thoughts, Suicidal thoughts, Visual hallucinations Hematological/Lymphatic: Reports: As per HPI. Denies: Anemia, Blood Clots, Easy bleeding, Easy bruising, Swollen glands Past Medical History - SOCIAL HISTORY Smoking Status: Never smoker Alcohol Use: None Drug Use: None - RESPIRATORY Hx Respiratory Disorders: Yes Hx Asthma: Yes (seasonal) Hx of CPAP: Yes - CARDIOVASCULAR Hx Cardio Disorders: Yes Hx Hypertension: Yes - NEURO Hx Neuro Disorders: No - GI Hx GI Disorders: No - Hx Genitourinary Disorders: No - ENDOCRINE Hx Endocrine Disorders: Yes Hx Diabetes: Yes Hx Thyroid Disease: No - MUSCULOSKELETAL Hx Musculoskeletal Disorders: No - PSYCH Hx Psych Problems: No - HEMATOLOGY/ONCOLOGY Hx Hematology/Oncology Disorders: No Hx Anemia: No Hx Blood Disorders: No Hx Bruising: No Family Medical History Any Significant Family History?: Yes Family Hx Comment (NOT TO BE USED IN PLACE OF ITEMS BELOW): none noted Hx Diabetes: Father, Mother Hx Heart Disease: Brother/Sister Course Vital Signs 05/19/16 07:48 Temperature 97.5 F L Pulse Rate 108 H Respiratory 16 Rate Blood Pressure 158/98 Pulse Ox 97 Medical Decision Making - Lab Data Result diagrams: 05/19/16 08:14 Lab Results 05/19/16 05/19/16 Range/Units 08:14 08:14 WBC 11.8 (4.2-12.2) K/uL RBC 5.06 (3.80-5.40) M/uL Hgb 13.3 (11.6-16.0) gm/dl Hct 42.0 (35.0-47.0) % MCV 83.0 (81-97) fl MCH 26.3 L (27-33) pg MCHC 31.7 L (32-36) g/dl RDW 14.9 H (11.5-14.5) % Plt Count 380 (130-400) K/uL MPV 9.9 (7.4-10.4) fl Neutrophils % 68.0 (47-80) % Band Neutrophils % 0.0 (0-5) % Lymphocytes % 29.0 (16-45) % Monocytes % 3.0 (0-9) % Eosinophils % 0.0 (0-6) % Basophils % 0.0 (0-6) % Uric Acid 6.57 H (2.5-6.2) mg/dL C-Reactive Protein 3.5 H (0.0-0.9) mg/dL Disposition Clinical Impression: Bursitis of shoulder Qualifiers: Laterality: right Qualified Code(s): M75.51 - Bursitis of right shoulder Acute gout Qualifiers: Gout site: shoulder Gout etiology: idiopathic Laterality: right Qualified Code( s): M10.011 - Idiopathic gout, right shoulder Disposition: Home, Self-Care Instructions: Shoulder Bursitis (ED), Acute Gouty Arthritis (ED) Additional Instructions: follow up with family in 5 days Prescriptions: Naproxen [Naprosyn] 500 mg PO Q12H #30 tab.dr Forms: Patient Portal Access Time of Disposition: 08:51
== END 2016-05-19 09:03 | disposition home or self-care (01) ==
LOC: ER 07:45
DX: M75.51 Bursitis of right shoulder (principal); M10.011 Idiopathic gout, right shoulder
CPT/HCPCS: 84550; 85027; 86140; 99283